=== PATIENT | male | born 1980 | race Caucasian/White ===

== ENCOUNTER 2018-03-16 17:12 | Emergency (ER) | payer OTHER, SELFPAY ==
[2018-03-16 17:13] VITALS: BP 121/71; PULSE 81; RESP 14; TEMP 36.7; O2SAT 97; BMI 25.7
[2018-03-16] MEDS: Lidocaine/Epi/Tetracaine 50 ML 1 APPLIC TOPICAL (17:52)
[2018-03-16] MEDS: Diphth,Pertuss(Acell),Tet Vac 0.5 ML Vial IM (17:52)
--- NOTE | 2018-03-16 19:33 | ED.DCSUM_ITS ---
- ER Visit Summary Date of Service: 03/16/18 Chief Complaint: Laceration History of Present Illness: The patient is a 37 M with no primary care physician. Reports that he was cutting down tree branches and one of them hit his left lower lip. Denies any loose teeth or malocclusion. No loss of consciousness. No neck pain. Reports is an aching pain is 2 out of 10 with movement and 1 out of 10 at rest. He is unsure when his last tetanus shot was. Physical Examination: Vitals: Stable. Afebrile. Head: 4 cm laceration to the left side of his lower lip. This is not through and through. There is no malocclusion or loose teeth. This does not cross the vermilion border. Neck: No vertebral tenderness. Full ROM without difficulty. Cleared by NEXUS criteria. Back: No vertebral tenderness. General: A&O x 3. NAD. Cardiovascular exam: Regular rate and rhythm, no murmur, rub or gallop. Respiratory exam: Chest nontender. No crepitus. Clear to auscultation bilaterally. No wheezes or stridor. Abdominal exam: Soft, nontender, nondistended, normal bowel sounds. No pain in RUQ or LUQ specifically. No peritoneal signs. Extremity: Atraumatic. No pain with range of motion. Emergency Department Course and Treatment: Patient had his tetanus updated. He refused pain medications. He had his wound anesthetized and repaired. He tolerated it well. Treatment Plan: Patient be discharged instructions to follow-up his primary care physician as needed. Return to the emergency department for any signs of infection. Disposition: To home in improved and stable condition. Impression: 1. Laceration to lower lip, 4 cm, repaired. Procedure note: Wound was cleansed with chlorhexidine soap. Anesthetized with 1% lidocaine without epinephrine. Copiously irrigated with normal saline. Wound was explored there is no foreign material present. It was closed with 7 simple interrupted 5- 0 rapid Vicryl sutures. The patient tolerated it well. This note was generated with [employer] dictation software. It may contain incorrect words, spelling, and punctuation that were not noted in review of the chart prior to signing ED Disposition - Plan for ED Patient: Disposition: Home or Assisted Living Chief Complaint: Laceration Instructions: ED Laceration Facial Sutr Tape Referrals: Madeline Liu [NON-STAFF] - As Needed
== END 2018-03-16 19:42 | disposition home or self-care (01) ==
PROVIDERS: Emergency Provider Emergency Medicine
DX: S01.511A Laceration without foreign body of lip, initial encounter (principal); R40.2410 Glasgow coma scale score 13-15, unspecified time; W22.8XXA Striking against or struck by other objects, initial encounter; Y93.89 Activity, other specified; Y92.9 Unspecified place or not applicable; F17.220 Nicotine dependence, chewing tobacco, uncomplicated
CPT/HCPCS: 12013; 90471; 90715; 99283

== ENCOUNTER 2018-05-22 11:54 | Day surgery (SDC) | payer OTHER, SELFPAY ==
[2018-05-22] VITALS (9 sets, daily range): BP systolic 107–123; BP diastolic 69–77; PULSE 61–88; RESP 16–18; TEMP 35.9–37; O2SAT 95–100; BMI 25.5; BMI 25.6
--- NOTE | 2018-05-22 12:08 | CT_ITS ---
STUDY: CT ABDOMEN AND PELVIS WITH CONTRAST REASON FOR EXAM: Male, 37 years old. Right upper quadrant pain and abdominal RADIATION DOSAGE (If Supplied By Facility): CTDIvol = ( 14.14 ) mGy, DLP = ( 1005.25 ) mGycm TECHNIQUE: Transaxial images were obtained from the dome of the diaphragm to the symphysis pubis without oral contrast. 100mL ml of Isovue 300 contrast was administered. Sagittal and coronal images were reconstructed. Individualized dose optimization techniques were used for this CT. COMPARISON: None. FINDINGS: No lung consolidation or pneumothorax. Calcified granuloma in the right lower lobe. Small calcified granuloma in the left lower lobe. No pericardial effusion. Liver and spleen demonstrate no discrete mass. Portal vein is patent. Gallbladder, adrenal glands and the pancreas are within normal limits. The bowel gas pattern is nonobstructive. Colonic diverticulosis. Dilated proximal appendix noted with mild adjacent inflammatory stranding and subtle free fluid suggestive of acute appendicitis. Appendiceal tip however appears unremarkable. Please correlate with patient's clinical findings. Splenic calcifications likely granulomatous disease Kidneys demonstrate no evidence for hydronephrosis. No retroperitoneal adenopathy. No free intraperitoneal air. Abdominal aorta is within normal limits. Mild degenerative changes in the lumbar spine. IMPRESSION: Dilated proximal appendix noted with mild adjacent inflammatory stranding and subtle free fluid suggestive of acute appendicitis. Appendiceal tip however appears unremarkable. Please correlate with patient's clinical findings. Electronically Signed: Arnold Norman, at 14:57 EDT Tel , Service support , CT/Abdomen/Pelvis WITH Contrast
--- NOTE | 2018-05-22 12:12 | ED.DCSUM_ITS ---
- ER Visit Summary Date of Service: 05/22/18 Chief Complaint: Abdominal pain History of Present Illness: The patient is a 37 M presenting with abdominal pain. He states it started last night. It worsened throughout the night. He has pain in the right lower and upper quadrant. He has decreased appetite and nausea. He denies vomiting or diarrhea. Denies fever. Denies dysuria. Denies other complaints. Physical Examination: Vitals are stable. Patient is afebrile. Alert no acute distress. HEENT exam is unremarkable. Neck is supple. Lungs are clear and equal bilaterally. Heart is regular rate and rhythm. Abdomen is soft right lower quadrant tenderness with voluntary guarding no rebound. Extremities are unremarkable Skin is warm and dry. No focal neurologic deficit. Remainder of exam is unremarkable. Emergency Department Course and Treatment: Patient is given morphine, Zofran. CBC shows normal white count. Chemistries unremarkable. Urinalysis unremarkable. CT abdomen pelvis IV and oral contrast shows dilated proximal appendix noted with mild adjacent inflammatory stranding and subtle free fluid suggestive of acute appendicitis. He was given Zosyn IV. Discussed with Dr. Garcia he will evaluate him in the emergency department. Disposition: To operating room Impression: Acute appendicitis This note was generated with [employer] dictation software. It may contain incorrect words, spelling, and punctuation that were not noted in review of the chart prior to signing ED Disposition - Plan for ED Patient: Chief Complaint: Abd Pain Referrals: Care Physician,No Primary [Primary Care Provider] -
[2018-05-22] MEDS: 0.9% Normal Saline 1,000 ML 1000 ML IV (12:31)
[2018-05-22] MEDS: Ondansetron 4 MG/2 ML Vial IV (12:35)
[2018-05-22] MEDS: Morphine 4 MG/ML Syringe IV (12:37)
[2018-05-22 12:45] LABS: Absolute Lymphocyte Count 1.45 X10^3/ul (0.83-4.51); Absolute Neutrophil Count 8.3 X10^3/uL (2.0-7.7); Basophil# 0.02 X10^3/uL; Basophil% 0.2 % (0-1); Eosinophil# 0.14 X10^3/uL; Eosinophils% 1.3 % (0-5); Hematocrit 43.5 % (40-54); Hemoglobin 15.2 g/dl (13.0-16.5); Lymphocyte # 1.45 X10^3/ul (4.0); Lymphocyte % 13.5 % (19-41); Mean Corp Hgb Conc 34.9 g/gl (32-36); Mean Corpuscular Volume 85.8 fL (80-94); Mean Platelet Vol. 9.7 fl (6.2-12.0); Monocyte# 0.83 X10^3/uL; Monocyte% 7.7 % (0-10); Neutrophil # 8.29 X10^3/uL (2.7-7.7); Neutrophil % 77.2 % (47-70); Platelet Count 264 K/mm3 (150-450); RBC Distribution Width CV 12.6 % (11.6-14.6); RBC Distribution Width SD 39.2 fl (35.1-43.9); Red Blood Count 5.07 M/mm3 (4.6-6.2); White Blood Count 10.7 K/mm3 (4.4-11.0)
[2018-05-22 12:46] LABS: POSITIVE COUNT NO; POSITIVE DIFFERENTIAL NO; POSITIVE MORPHOLOGY NO
[2018-05-22 12:53] LABS: Anion Gap 8 (5-15); BUN 13 mg/dL (7-18); BUN/Creat Ratio 12.6 RATIO (10-20); Calcium,Total 8.9 mg/dL (8.5-10.1); Chloride 105 mmol/L (98-107); Creatinine, Serum 1.03 mg/dL (0.70-1.30); EST Glomerular Filtration Rate 85 mL/min (>60); Est Glom Filt Rate - Afr Amer 103 mL/min (>60); Estimated Creatinine Clearance 108.82 ml/min; Glucose 100 mg/dL (74-106); Potassium 3.9 mmol/L (3.5-5.1); Sodium Level 142 mmol/L (136-145)
[2018-05-22 13:16] LABS: Bacteria 0 SEEN /hpf (None Seen); Mucous, Urine 0 SEEN /hpf (<or=2+); Red Blood Cells-Urine 0 SEEN /hpf (0-5); Squamous Epithelial Cells - UA 0 SEEN /hpf (0-5); White Blood Cells 0 SEEN /hpf (0-5)
[2018-05-22 13:19] LABS: Color, Urine Yellow (Yellow); Glucose, Dipstick Normal (Normal); Ketone-Dipstick Negative (Negative); Leukocyte Esterase-Dipstick Negative /ul (Negative); Nitrite-Dipstick Negative (Negative); Occult Blood-Urine Negative /ul (Negative); Protein-Dipstick Negative (Negative); Specific Gravity, Urine 1.005 (1.002-1.030); Urine Bilirubin Dipstick Negative (Negative); Urine Clarity Clear (Clear); Urine Urobilinogen Normal (Normal)
[2018-05-22] MEDS: Piperacil/Tazobactam 3.375 GM/50 ML ML IV ×2 (15:45→22:17)
--- NOTE | 2018-05-22 15:54 | HP.PCM_ITS ---
Problem List (1) Acute appendicitis Status: Acute Qualifiers: Acute appendicitis type: with localized peritonitis Qualified Code(s): K35.3 - Acute appendicitis with localized peritonitis History of Present Illness Date of Admission: 05/22/18 he patient is a 37 M presenting with abdominal pain. He states it started last night. It worsened throughout the night. He has pain in the right lower and upper quadrant. He has decreased appetite and nausea. He denies vomiting or diarrhea. Denies fever. Denies dysuria. Denies other complaints. Workup in the emergency department revealed a normal white count and a CAT scan that showed acute appendicitis. Past Medical History Allergies No Known Allergies Allergy (Verified 05/22/18 11:54) Home Medications: Ambulatory Orders Medication Instructions Recorded NK [NK] 03/16/18 Smoking Status: Never smoker - *Family History Maternal History Items: No pertinent history Review of Systems Constitutional: Reports: Anorexia Eyes: Denies: Blurred vision, Pain, Redness, Vision Change HEENT: Denies: Dysphasia, Ear Pain, Eye Pain, Head Aches, Hearing Changes, Sore Throat Cardiovascular: Denies: Chest Pain, Chest Pressure, Chest Tightness, Palpitations Respiratory: Denies: Cough, Hemoptysis, Shortness of breath at rest, Shortness of breath upon exertion, Wheezing Gastrointestinal: Reports: Abdominal Pain, Nausea Genitourinary: Denies: Dysuria, Frequency, Hematuria, Urgency Musculoskeletal: Denies: Joint Pain Skin: Denies: Lesions, Rash, Wounds Neurological: Denies: Change in Speech, Confusion, Numbness, Tingling, Seizures Psychiatric: Denies: Anxiety, Depression Endocrine: Denies: Heat/ Cold Intolerance, Polydipsia, Polyuria Hematologic/ Lymphatic: Denies: Adenopathy, Easy Bruising VTE Information - Inpt Only VTE Present on Admission: No VTE Mechan Device Prophylaxis: SCD's VTE Pharm Prophylaxis ordered?: No Reason prophylaxis not ordered:: Treatment Not Indicated Patient Problems: Active and Suspected Problems Acute appendicitis (Acute) - Physical Exam General: Alert, Oriented x3 Lungs: Clear to auscultation Cardiovascular: Regular rate, Regular Rhythm, No murmurs Abdomen: Bowel Sounds Present, Soft, Non Tender, Non-Distended Neurological: Cranial nerves II-XII grossly intact Vital Signs Temp Pulse Resp BP Pulse Ox 98.1 F 61 16 113/72 100 05/22/18 15:47 05/22/18 15:47 05/22/18 15:47 05/22/18 15:47 05/22/18 15:47 Oxygen Delivery Method Room Air Weight: 193 lb 12.8 oz Body Mass Index (BMI) 25.5 Laboratory Tests Past 24 Hrs 05/22/18 05/22/18 05/22/18 12:28 12:28 13:14 WBC 10.7 RBC 5.07 Hgb 15.2 Hct 43.5 MCV 85.8 MCH 30.0 MCHC 34.9 RDW 12.6 RDW Differential 39.2 Plt Count 264 MPV 9.7 Immature Gran % (Auto) 0.100 Neut % (Auto) 77.2 H Lymph % (Auto) 13.5 L [place] % (Auto) 7.7 Eos % (Auto) 1.3 Baso % (Auto) 0.2 Absolute Neuts (auto) 8.3 H Absolute Lymphs (auto) 1.45 Total Counted Not Reportable Sodium 142 Potassium 3.9 Chloride 105 Carbon Dioxide 29.0 Anion Gap 8 BUN 13 Creatinine 1.03 Estim Creat Clear Calc 108.82 Est GFR (MDRD) Af Amer 103 Est GFR (MDRD) Non-Af 85 BUN/Creatinine Ratio 12.6 Glucose 100 Calcium 8.9 Urine Color Yellow Urine Clarity Clear Urine pH 7.0 Ur Specific [place] 1.005 Urine Protein Negative Urine Glucose (UA) Normal Urine Ketones Negative Urine Occult Blood Negative Urine Nitrite Negative Urine Bilirubin Negative Urine Urobilinogen Normal Ur Leukocyte Esterase Negative Urine RBC 0 SEEN Urine WBC 0 SEEN Ur Squamous Epith Cells 0 SEEN Urine Bacteria 0 SEEN Urine Mucus 0 SEEN Assessment/Plan All Active Problems Acute appendicitis (Acute) Implants perform a laparoscopic appendectomy on the patient was benefits to include bleeding infection possible injury to underlying organs and/or delayed abscess were reviewed in great detail with the patient the patient agrees to proceed. All questions asked were answered
--- NOTE | 2018-05-22 16:43 | APP_PTH ---
PATIENT: FREDA CROWE LOC: [facility] U#:[id number] AGE/SX: 37/M ROOM: RE05/22/[address]: Dr. Catalino Garcia MD : 1980 BED: DIS: 05/23/2018 SPEC #: [id number] RECD: 05/23/18 09:23 STATUS: ANNA ROEL #: [id number] JACK: 05/22/18 16:[address]: Catalino Garcia DEPT: SURGICAL PATHOLOGY RECD BY: Valeria Vargas ENTERED: 05/23/18 09:45 SP TYPE: APPENDIX OT DR: No Primary Care Phys Tissues: Appendix, NOS Procedures: Surgery Specimen Level III HEADER OPERATION: Laparoscopic, appendectomy PRE-OP DIAGNOSIS: Acute appendicitis TISSUE SUBMITTED: Appendix MICROSCOPIC DIAGNOSIS Appendix: Acute appendicitis and periappendicitis. SJ:lety 05/24/18 MICROSCOPIC DESCRIPTION Slides are reviewed. GROSS DESCRIPTION Received is one container labeled with the patient's name and designated appendix. The specimen consists of an appendix measuring 7 cm in length and varies in diameter from 0.6 to 1.2 cm. No gross perforations. Serial sections reveal fibrofatty obliteration of distal appendix. No mass lesions are identified. Mantel Craftsman sections are submitted in one cassette. / AM:lety 05/23/18 TC:4 CPT: 50653
--- NOTE | 2018-05-22 17:11 | PCM.OPRPT ---
Problem List (1) Acute appendicitis Status: Acute Qualifiers: Acute appendicitis type: with localized peritonitis Qualified Code(s): K35.3 - Acute appendicitis with localized peritonitis Report of Operation Date of Procedure: 05/22/18 Pre-Operative Diagnosis: k35.3 acute appendicitis Post-Operative Diagnosis: same Surgery/Procedure Performed:: Laparoscopic appendectomy Type of Anesthesia:: General Anesthesiologist: Latisha Alonzo Estimated Blood Loss (mL): < 25 cc Description of Procedure: Patient was brought into the operating room and placed in the supine position. Under excellent general endotracheal intubation the abdomen was sterilely prepped and draped in the usual fashion. 1% lidocaine plain was injected infraumbilically. Dissection was carried down to the fascia. Fascia was grasped with a Caitlyn. Varies needle was placed inside the abdomen. The abdomen was insufflated to 15 torr. A 10/12 trocar was placed without difficulty. Patient was placed in the headdown position. Suprapubic #5 trocar was placed, and left lower quadrant #5 trocar was placed. Both of these under direct visualization without injury to underlying structures. Patient was rotated to the left. I dissected and identified acute appendicitis. I took the mesoappendix down with the Enseal. I transected the base of the appendix with a 45 linear cutter. I had excellent hemostasis. Placed a specimen a specimen bag. I removed it from the umbilical port. I irrigated the right lower quadrant and pelvis area. I have excellent hemostasis. There was no pus in the pelvis. I removed the trochars under direct visualization. I closed the fascia the umbilical port with a [id number] stitch of 0 Vicryl. Skin incisions were closed with septicum stitches of 4-0 Monocryl. Steri-Strips are applied. Sterile dressings were applied. The patient tolerated the procedure well. - Admit VTE Documentation VTE Present on Admission: No VTE Mechan Device Prophylaxis: SCD's VTE Pharm Prophylaxis ordered?: No Reason prophylaxis not ordered:: Treatment Not Indicated
[2018-05-22] MEDS: Bupivacaine Mpf 0.5% 30 ML VIAL (17:23)
[2018-05-23 02:19] VITALS: BP 107/60; PULSE 74; RESP 16; TEMP 37.2; O2SAT 98
[2018-05-23] MEDS: Piperacil/Tazobactam 3.375 GM/50 ML ML IV (05:45)
[2018-05-23 07:41] VITALS: BP 117/66; PULSE 49; RESP 18; TEMP 36.7; O2SAT 98
[2018-05-23 07:44] VITALS: PULSE 49
--- NOTE | 2018-05-23 08:11 | DCINST_ITS ---
Discharge Diet: Light diet - advance as tolerated Discharge Activity: May Not Drive - for 3-5 days or while taking narcotic pain meds. May shower in (days): 1 Call your doctor if your incision/area has: Continuous Slow Oozing, Sudden Increased Bleeding, Increased Pain/ Swelling, Increased Redness, Foul Smelling Discharge Call your doctor if you observe: Fever of 101 or Higher Suture Line Care: Avoid Pulling/Pushing, Avoid Pinching/Bending Cleanse incision/area with: Soap & Water Additional Dressing/Incision Instructions:: Keep dressing clean and dry. Change or remove dressing in 2 days. Leave steri strips for 1 week. May protect with a gauze bandaid. Medications to take at Discharge Oxycodone HCl/Acetaminophen [Percocet 5/325] 1 - 2 tab PO Q4H PRN PRN 4 Days # 30 tab 05/22/18 Allergies/Adverse Reactions: Allergies No Known Allergies Allergy (Verified 05/22/18 11:54) The following prescriptions were given: Oxycodone HCl/Acetaminophen [Percocet 5/325] 1 - 2 tab PO Q4H PRN PRN 4 Days # 30 tab PRN Reason: Pain Primary Care Physician: Care Physician,No Primary [Primary Care Provider] - Test Results: Test results from this visit will be discussed in further detail at your follow- up appointment, if applicable. Please Follow Up With: Niru Bojorquez PA-C - [phone] When: 10 days Proposed Discharge Date: 05/23/18
--- NOTE | 2018-05-23 08:13 | PN.SURG_ITS ---
Patient Problems: Active and Suspected Problems Acute appendicitis (Acute) Subjective: Patient evaluated resting comfortably in bed. He denies abdominal pain/ discomfort. He denies nausea, vomiting, fever. He is urinating well. - Physical Exam General: Alert, Oriented x3, Cooperative Abdomen: Soft, Non Tender, Hypoactive Bowel Sounds, Distended - slightly, - - Incisions c/d/i. No erythema or infection noted Vital Signs Temp Pulse Resp BP Pulse Ox 98.1 F 49 L 18 117/66 98 05/23/18 07:41 05/23/18 07:44 05/23/18 07:41 05/23/18 07:41 05/23/18 07:41 Oxygen Delivery Method Room Air Weight: 193 lb 12.8 oz Body Mass Index (BMI) 25.5 Intake and Output for Last 24 Hours 05/21/18 05/22/18 05/23/18 23:59 23:59 23:59 Intake Total 1827 / 1827 320 / 320 Output Total 600 / 600 350 / 350 Balance 1227 / 1227 -30 / -30 Laboratory Tests Past 24 Hrs 05/22/18 05/22/18 05/22/18 12:28 12:28 13:14 WBC 10.7 RBC 5.07 Hgb 15.2 Hct 43.5 MCV 85.8 MCH 30.0 MCHC 34.9 RDW 12.6 RDW Differential 39.2 Plt Count 264 MPV 9.7 Immature Gran % (Auto) 0.100 Neut % (Auto) 77.2 H Lymph % (Auto) 13.5 L [place] % (Auto) 7.7 Eos % (Auto) 1.3 Baso % (Auto) 0.2 Absolute Neuts (auto) 8.3 H Absolute Lymphs (auto) 1.45 Total Counted Not Reportable Sodium 142 Potassium 3.9 Chloride 105 Carbon Dioxide 29.0 Anion Gap 8 BUN 13 Creatinine 1.03 Estim Creat Clear Calc 108.82 Est GFR (MDRD) Af Amer 103 Est GFR (MDRD) Non-Af 85 BUN/Creatinine Ratio 12.6 Glucose 100 Calcium 8.9 Urine Color Yellow Urine Clarity Clear Urine pH 7.0 Ur Specific [place] 1.005 Urine Protein Negative Urine Glucose (UA) Normal Urine Ketones Negative Urine Occult Blood Negative Urine Nitrite Negative Urine Bilirubin Negative Urine Urobilinogen Normal Ur Leukocyte Esterase Negative Urine RBC 0 SEEN Urine WBC 0 SEEN Ur Squamous Epith Cells 0 SEEN Urine Bacteria 0 SEEN Urine Mucus 0 SEEN Medical Necessity - Tobacco Use Smoking Status: Never smoker Assessment/Plan All Active Problems Acute appendicitis (Acute) I am following this patient in conjunction with Dr. Garcia Impression: S/p lap appendectomy Ready for discharge Code Visit Inpatient E&M: 70312 Subs Hosp L1 - NO CHARGE; POST-OP
== END 2018-05-23 10:19 | disposition home or self-care (01) ==
LOC: ED 12:29 → SDC 15:38 → MS3 15:38
PROVIDERS: Emergency Provider Emergency Medicine; Visit Provider Surgery
PROC: 0DTJ4ZZ Resection of Appendix, Percutaneous Endoscopic Approach (ICD-10-PCS; CPT 44970; principal; 2018-05-22 16:43)
DX: K35.3 Acute appendicitis with localized peritonitis (principal)
CPT/HCPCS: 44970; 74177; 80048; 81001; 85025; 88304; 99282; Q9967; A4216; C1760; J2405

== ENCOUNTER 2019-08-08 12:55 | Emergency (ER) | payer SELFPAY ==
[2019-08-08 12:56] VITALS: BP 104/62; BP 96/42; PULSE 64; PULSE 75; RESP 14; RESP 16; TEMP 36.4; O2SAT 100; O2SAT 98; BMI 25.3
[2019-08-08] MEDS: Ondansetron 4 MG/2 ML Vial IV (13:04)
[2019-08-08] MEDS: morphine 8 MG/ML Syringe IV (13:04)
--- NOTE | 2019-08-08 13:30 | ED.DCSUM_ITS ---
History of Present Illness Chief Complaint: Laceration Narrative: Patient presenting for evaluation secondary to a chain saw injury. Patient reports that he suffered an injury to his left lateral leg secondary to a chainsaw. Tetanus status is up-to-date. Patient denies any numbness or weakness. Pain is moderate to severe. Bleeding was controlled with pressure. Past Medical History - Allergies and Home Meds Allergies/Adverse Reactions: Allergies No Known Allergies Allergy (Verified 08/08/19 12:56) Primary Care Physician: Care Physician,No Primary [Primary Care Provider] - Past Medical History: None Smoking Status: Never smoker - Family History Maternal Family History: Reports: No pertinent history Review of Systems All systems negative except as indicated Skin: Reports: Wounds Physical Exam Vital Signs/Narrative: Vital Signs Temp Pulse Resp BP Pulse Ox 08/08/19 12:56 97.6 F L 75 16 96/42 L 98 Inital Vital Signs reviewed: Yes General: Well nourished, Well developed, No Acute Distress Head: Normocephalic, Atraumatic Eyes: Perrl, EOMI ENT: Moist mucous membranes, No rhinorrhea Neck: Supple, Nontender Cardiovascular: Regular rate, Regular rhythm, No murmurs Respiratory: No distress, CTA bilaterally, Chest nontender Abdomen: Soft, Nontender, Nondistended, Normal bowel sounds Back: Nontender, Normal Inspection Extremities: - - Examination of the patient's left leg shows a large laceration over the lateral portion of the patient's knee measuring approximately 20 cm and going up underneath the patient's patella close to the patient's knee joint. Patient has intact extensor mechanism. Normal sensation distally, normal DP and PT pulses, normal capillary refill. Skin: Normal color, No rash Neurological: Alert, Oriented x3, Cranial nerves II-XII grossly intact, Normal Strength, Normal Sensation Psychological: Normal affect, Normal Mood Diagnostic/Tx/Re-eval Chest X-Ray - ED: - - No clear evidence of bony injury on the patient's knee x- ray by my personal review as well as radiology - Medical Decision Making Patient presented secondary to a chainsaw injury. IV was established patient was given morphine Zofran and Ancef. An x-ray shows no bony injury, but the location of the patient's wound is concerning for violation of the patient's joint capsule especially since he goes underneath his patella. Wound was placed in a wet-to-dry dressing. I discussed patient's case with Dr. Bonner who requested that the patient be transferred to a trauma center. Patient will be transferred to [facility] [place] for definitive management. - Critical Care Time Critical care time (excluding procedures): 30-74 minutes, Including time spent:, Discussing w/Patient &/or Family/Sales And Events Coordinator, Discussing w/Consultants, Arranging Admission or Transfer, Performing Direct Patient Care at Bedside ED Disposition - Plan for ED Patient: Disposition: Home or Assisted Living Diagnosis: intraarticular laceration left knee, Leg laceration Referrals: Care Physician,No Primary [Primary Care Provider] -
[2019-08-08] MEDS: Cefazolin 1 GM/50 ML BAG IV (13:50)
--- NOTE | 2019-08-08 14:01 | RAD_ITS ---
STUDY: X-RAY - LEFT KNEE REASON FOR EXAM: Male, 38 years old. Laceration. TECHNIQUE: 3 view(s) of the knee. COMPARISON: None. FINDINGS: Normal visualized distal femur. Normal visualized proximal tibia and fibula. Normal proximal tibiofibular articulation. Normal medial femorotibial compartment. Normal lateral femorotibial compartment. Normal patellofemoral articulation. Soft tissue laceration. RAD/Knee 3 Views IMPRESSION: Soft tissue laceration. No radiopaque foreign body is seen. Electronically Signed: Herman Johnson, at 14:37 EDT , Service support ,
[2019-08-08 14:44] VITALS: BP 107/77; PULSE 67; RESP 17; O2SAT 96
[2019-08-08] MEDS: Morphine 4 MG/ML Syringe IV (14:55)
[2019-08-08 14:56] VITALS: BP 107/77; PULSE 63; RESP 17; O2SAT 97
--- NOTE | 2019-08-08 14:59 | ED.RN ---
PER DR CALVIN PT IS TO HAVE IV LEFT IN PLACE
== END 2019-08-08 15:29 | disposition home or self-care (01) ==
LOC: ED 13:17
PROVIDERS: Emergency Provider Emergency Medicine
DX: S81.012A Laceration without foreign body, left knee, initial encounter (principal); W29.3XXA Contact with powered garden and outdoor hand tools and machinery, initial encounter; Y93.9 Activity, unspecified; Y92.9 Unspecified place or not applicable
CPT/HCPCS: 73562; 90715; 96365; 96374; 96375; 96376; 99285; J7030; A4216; J2405